=== PATIENT | female | born 1975 | race African-American/Black ===

== ENCOUNTER 2023-01-02 17:17 | Emergency (ER) | payer MEDICAID ==
[~2023-01-02] VITALS: Ht 172.7 cm; Wt 83.0 kg
[~2023-01-02 17:17] MED LIST: HYDR25TA4; METO25TA36
[2023-01-02 17:38] VITALS: BP 184/102
[2023-01-02] MEDS ORDERED: FLUORESCEIN SOD OPTH TEST STRIP OP ONE (17:45)
[2023-01-02] MEDS ORDERED: CIP03OS LEFTEYE (17:57)
== END 2023-01-02 18:04 | disposition home or self-care (01) ==
LOC: ER 17:17
DX: S05.02XA Injury of conjunctiva and corneal abrasion without foreign body, left eye, initial encounter (principal); F17.210 Nicotine dependence, cigarettes, uncomplicated; I10 Essential (primary) hypertension; Z88.0 Allergy status to penicillin; X58.XXXA Exposure to other specified factors, initial encounter; Y93.89 Activity, other specified; Y92.89 Other specified places as the place of occurrence of the external cause; Y99.8 Other external cause status